=== PATIENT | female | born 1970 | race Caucasian/White ===

== ENCOUNTER 2018-01-17 01:40 | Emergency (ER) | payer BC ==
[~2018-01-17] VITALS: Ht 160 cm; Wt 78.0 kg
[2018-01-17 01:46] VITALS: BP 151/82
--- NOTE | 2018-01-17 01:46 | NUR ---
TO BED # 5 AMBULATORY , REPORT GIVEN TO DEBRA HENRY
--- NOTE | 2018-01-17 01:50 | NUR ---
ASSUMED CARE OF PT AT THIS TIME. C/O DIFFICULTY BREATHING W/ ANXIETY X 12 HOURS. NO RESPIRATORY DISTRESS NOTED...PT SPEAKS IN FULL SENTENCES. AAOX4 WITH EVEN AND STEADY GAIT; LUNGS CLEAR BL; HR EVEN AND REGULAR; PATIENT STATES PAIN OF 0/10; VSS; PATIENT POSITIONED FOR COMFORT; HOB ELEVATED; BEDRAILS UP X2; BED DOWN. ER MD MADE AWARE OF PT STATUS. WILL CONTINUE TO MONITOR.
[2018-01-17] MEDS ORDERED: ONDANSETRON 4 MG/2 ML VIAL IVP ONE (02:00)
[2018-01-17] MEDS ORDERED: NACL 0.9% 1,000 ML IV ONE (02:00)
[2018-01-17 02:22] LABS: WHITE BLOOD COUNT (AUTO) 8.5 K/uL (4.8-10.8)
[2018-01-17 02:23] LABS: HEMATOCRIT 43.8 % (36-48); HEMOGLOBIN 14.3 g/dL (12.0-16.0); MEAN CORPUSCULAR HEMOGLOBIN 28 pg (27-31); MEAN CORPUSCULAR HGB CONC 33 g/dL (33-37); MEAN CORPUSCULAR VOLUME 87.3 fL (80-94); PLATELET COUNT (AUTO) 412 K/uL (140-450); RED BLOOD CELL COUNT(AUTO) 5.02 MIL/uL (4.20-5.40); RED CELL DISTRIBUTION WIDTH 12.6 % (11.6-13.7)
[2018-01-17 02:24] LABS: BASOPHILS # (AUTO) 0.1 K/uL (0.00-0.22); EOSINOPHILS % (AUTO) 0.3 % (0.0-4.0); LYMPHOCYTES % (AUTO) 22.9 % (20.5-51.1); MONOCYTES # (AUTO) 0.8 K/uL (0.8-1.0); MONOCYTES % (AUTO) 9.3 % (1.7-9.3); NEUTROPHILS # (AUTO) 5.6 K/uL (1.8-7.7); NEUTROPHILS % (AUTO) 66.5 % (42.2-75.2)
[2018-01-17 02:25] LABS: ANION GAP 11.7 (8-16); CARBON DIOXIDE 29.7 mmol/L (21-32); POTASSIUM 3.4 mmol/L (3.5-5.1)
[2018-01-17 02:32] LABS: TOTAL BILIRUBIN 0.4 mg/dL (0.0-1.0)
--- NOTE | 2018-01-17 02:37 | NUR ---
REPORT GIVEN TO ELAINE CEDILLO TO ASSUME CARE.
--- NOTE | 2018-01-17 03:00 | NUR ---
PO CHALLENGE, APPLE JUICE WAS GIVEN
[2018-01-17 03:27] VITALS: BP 140/75
== END 2018-01-17 03:30 | disposition home or self-care (01) ==
LOC: MED 01:40
DX: F41.9 Anxiety disorder, unspecified (principal); E86.0 Dehydration; R03.0 Elevated blood-pressure reading, without diagnosis of hypertension
CPT/HCPCS: 36415; 80053; 85025; 96374; 99284; J2405; J7030